=== PATIENT | male | born 1945 | race Caucasian/White ===

== ENCOUNTER 2025-11-09 09:56 | Day surgery (SDC) | payer OTHER ==
[~2025-11-09 09:56] MED LIST: Lactated Ringers 1,000 ML IV SCH; Tylenol #3 Tablet PO PRN
[2025-11-09] MEDS ORDERED: Tobrex OPHTH. OINTMENT OP ONE (09:57)
[2025-11-09] MEDS ORDERED: VANCOCIN INJECTION IV ONE (09:57)
[2025-11-09] MEDS ORDERED: BSS 15 ML IO ONE (09:57)
[2025-11-09] MEDS ORDERED: BSS PLUS IO ONE (09:57)
[2025-11-09] MEDS ORDERED: BUPIVACAINE 0.75% 10 ML VIAL PF IJ ONE (09:57)
[2025-11-09] MEDS: TETRACAINE 0.5% STERI-UNIT SOL OP ONE (10:21)
[2025-11-09 10:24] VITALS: RESP 16
[2025-11-09] MEDS: PRED-FORTE 1% OPHTHALMIC OP ONE (10:32)
[2025-11-09] MEDS: MOXIFLOXACIN OP ONE (10:39)
[2025-11-09] MEDS: Cyclogyl 1% EYE DROPS OP SCH (10:44)
[2025-11-09] MEDS ORDERED: PHENYLEPHRINE HCL ONE (11:48)
[2025-11-09] MEDS ORDERED: ROCURONIUM BROMIDE IV ONE ×2 (11:48→12:55)
[2025-11-09] MEDS ORDERED: propofoL IV ONE (11:48)
[2025-11-09] MEDS ORDERED: Xylocaine-Mpf 2% 5 Ml Vial ONE (11:48)
[2025-11-09] MEDS ORDERED: Zofran 4 MG/2 ML VIAL ONE (14:08)
[2025-11-09] MEDS ORDERED: BRIDION 200MG/2ML IV ONE (14:08)
--- NOTE | 2025-11-09 15:06 | OP ---
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 The surgical procedure was reviewed once again, and all questions were answered satisfactorily. The patient acknowledged understanding that visual improvement could not be guaranteed despite optimal surgical effort and elected to proceed. The operative eye (left) was marked. The patient was transported to the operating room and placed under general anesthesia. The eye was prepped and draped in the standard sterile ophthalmic fashion, and a lid speculum was inserted. A surgical time-out confirmed the correct patient and operative site. Three 25-gauge transconjunctival cannulas were placed in the inferotemporal, superotemporal, and superonasal quadrants, 3.5 mm posterior to the limbus, using beveled entries. The infusion line was connected to the inferotemporal cannula, and proper intraocular placement was confirmed before initiating balanced salt solution (BSS) infusion at 30 mmHg. An anterior vitrectomy was performed with care to avoid contact with the posterior chamber intraocular lens. The ReSight lens was then engaged for visualization of the posterior segment. Examination confirmed a macula-off rhegmatogenous retinal detachment involving the superior and superotemporal quadrants, with multiple retinal tears between the 12:00 and 1:00 clock positions. A pre-existing posterior vitreous detachment was present. A core vitrectomy was performed, followed by 360-degree peripheral vitreous base shaving. A 25-gauge chandelier light was utilized to facilitate peripheral visualization. The chandelier was first inserted through the superonasal port, allowing removal of the nasal vitreous base under scleral depression. It was then repositioned into the superotemporal port to complete shaving of the temporal vitreous base. The retinal breaks were marked with diathermy, and the flap edges were trimmed with the vitrector. Because the tears were located too anteriorly for adequate drainage, a drainage retinotomy site was marked with diathermy in the superonasal quadrant. A retinotomy was created using a soft-tip extrusion cannula, and subretinal fluid was drained through both the retinotomy and the retinal breaks. A fluid-air exchange was then performed using the mechanized gas injection system set at 35 mmHg. Additional subretinal fluid was removed until the retina was fully reattached. Endolaser photocoagulation was applied in 2-3 confluent rows around all identified breaks, the drainage retinotomy, and areas of peripheral retinal thinning, using 200 mW power and 200 ms duration. A final sweep with the soft-tip cannula was performed to remove residual fluid over the optic nerve. At this point, the retina was fully reattached, with only a small amount of residual subretinal fluid noted at the posterior pole. All breaks were adequately treated. A 12% C3F8 gas mixture was injected through the infusion line while passive venting was performed through another cannula. All cannulas were then removed. The superonasal and superotemporal sclerotomies were closed with 7/0Vicryl suture and inferotemporal sclerotomy was sealed with scleral massage. Intraocular pressure was palpated and found to be within normal limits. Subconjunctival dexamethasone and cefazolin were administered. Moxifloxacin and Pred Forte drops and Tobradex ointment were instilled. The eye was patched and shielded. The patient tolerated the procedure well and was transferred to the PACU in stable condition. Estimated Blood Loss: MinimalSpecimen: NoneComplications: NonePatient Condition: Discharged to PACU in a stable conditionInfection Present at Time of Surgery: NoWound Classification: Clean
[2025-11-09] MEDS ORDERED: DILAUDID 0.5 MG/0.5 ML SYRINGE ONE (15:09)
[2025-11-09 15:52] VITALS: TEMP 97
[2025-11-09 16:26] VITALS: BP 145/67; PULSE 78; O2SAT 94
== END 2025-11-09 16:30 | disposition home or self-care (01) ==
LOC: SDC 09:56
PROVIDERS: ATTEND Ophthalmology Retina Specialist
DX: H33.022 Retinal detachment with multiple breaks, left eye (principal); E11.9 Type 2 diabetes mellitus without complications